=== PATIENT | female | born 1965 | race Caucasian/White ===

== ENCOUNTER 2018-09-26 10:28 | Day surgery (SDC) | payer MEDICARE ==
[2018-09-26] MEDS ORDERED: Ketamine HCl 50 MG/ML IJ ONE (10:29)
[2018-09-26] MEDS ORDERED: Depo-Medrol 40 MG/ML IM ONE (10:29)
[2018-09-26] MEDS ORDERED: DIPRIVAN 200 MG/20 ML IV ONE (10:29)
[2018-09-26] MEDS ORDERED: Marcaine 0.5% SDV 10 ML IJ ONE (10:29)
[2018-09-26] MEDS ORDERED: LIDOCAINE HCL 2% 100 MG/5 ML IJ ONE (10:29)
--- NOTE | 2018-09-26 12:38 | XRAY ---
Indication: Left knee injection. Intraoperative fluoroscopy was provided for 8 seconds. Single digital spot image submitted for interpretation demonstrates needle tip projecting over the left femur intercondylar notch. Small amount of contrast injected for needle tip placement. Correlate with intraoperative findings/report.
--- NOTE | 2018-09-26 12:48 | XRAY ---
8 seconds fluoroscopy time in surgery for left knee injection.
[2018-09-26] MEDS ORDERED: Lactated Ringers 1,000 ML IV ONE (17:11)
== END 2018-09-26 12:25 | disposition home or self-care (01) ==
LOC: SDC-PAIN 10:28
PROVIDERS: ATTEND Psychiatry & Neurology Pain Medicine
DX: M17.12 Unilateral primary osteoarthritis, left knee (principal); M25.561 Pain in right knee; I10 Essential (primary) hypertension; Z79.899 Other long term (current) drug therapy; I89.0 Lymphedema, not elsewhere classified
CPT/HCPCS: 20610; 73560; 77002; J1030; J2704; Q9966